=== PATIENT | female | born 1950 | race Caucasian/White ===

== ENCOUNTER → 2016-08-20 | Outpatient (CLI) | payer OTHER ==
--- NOTE | 2016-08-20 10:49 | US ---
Sonography Limited to the Right Upper Quadrant of the Abdomen Clinical History: 66-year-old female with right upper quadrant pain. Technique: A curvilinear 5 MHz transducer was used to sonographically evaluate the right upper quadra nt of the abdomen. Color Doppler was also used. Comparison Study: None. Findings: At the posterior margin of the pancreatic body, there is a 7 x 8 x 9 mm rounded hypoechoic nodule which is not vascular. Consider multiphasic contrast-enhanced MR imaging for additional assess ment. There is some mild underlying pancreatic fatty infiltration. The distal pancreatic tail is part ially obscured by bowel gas. The abdominal aorta is normal in size and tapers normally. The visualize d IVC is normal in caliber. The hepatic vein trifurcation and the main portal vein are patent. There is no ascites, or right pleural effusion. The liver measures 14.8 cm along the right midaxillary line , and is mildly echogenic relative to adjacent right renal cortex. There is no intrahepatic or extrah epatic bile duct dilatation. The common bile duct measures 3.6 mm. The gallbladder is moderately dist ended, with no stones, however, there is an adherent 3.3 mm echogenic nonshadowing polyp. There is no pericholecystic fluid, wall thickening, or sonographic Whalen sign. The gallbladder wall thickness i s 2.0 mm. The right kidney measures 10.8 x 4.6 x 5.2 cm. There is a normal renal cortical thickness o f 1.2 cm. There is no focal renal mass, hydronephrosis, or perinephric fluid. There is conspicuity of the medullary pyramids which may reflect some mild relative increased renal cortical echotexture. Co rrelation with serum creatinine level and GFR is suggested. Impression: 1. There is a 9 mm hypoechoic nodule along the posterior body of the pancreas. Multiphasic contrast-e nhanced MR imaging is recommended for further assessment. 2. There is a benign-appearing 3 mm polyp in the gallbladder. There is no cholelithiasis, cholecystit is, or bile duct dilatation. 3. Low-grade hepatic steatosis. 4. Mild prominence of the right kidney medullary pyramids which made represent a normal variant, alth ough can also be seen in individuals with medical renal disease. Correlation with serum creatinine le taty and GFR is suggested. A Follow-Up Required test result notification was sent via the [employer] service, 5:13:49 PM, 08/20/2016 , [employer] Message ID [id number].
== END ==
LOC: FIMAGING 09:25
PROVIDERS: ATTEND Family Medicine
DX: R93.2 Abnormal findings on diagnostic imaging of liver and biliary tract (principal); R10.11 Right upper quadrant pain

== ENCOUNTER → 2016-08-22 | Outpatient (CLI) | payer OTHER ==
[~2016-08-22] MED LIST: IOPAMIDOL (ISOVUE-300) 50 ML VIAL IV ONE
--- NOTE | 2016-08-22 18:29 | CT ---
CT Abdomen With and Without Contrast Clinical indication: Pancreatic nodule. Comparison: August 20, 2016, ultrasound. TECHNIQUE: 1. 1.5 mm contiguous helical axial scanning through the abdomen without contrast. 2. 1.5 mm contiguous helical axial scanning through the abdomen postcontrast in the arterial phase. 3. 1.5 mm contiguous helical axial scanning through the abdomen in the portal venous phase. Patient received 90 mL of Isovue-300 without complication. Dose reduction technique was performed. FINDINGS: Surgical clip is noted in the right breast. The lung bases are clear. The liver, gallbladde r, spleen, adrenals, and kidneys are grossly unremarkable. In the portal venous phase is a hyperenhan cing nodule that is not visualized on the noncontrast and the arterial phase imaging. It is in the sa me location just above the junction of the splenic and superior mesenteric vein best seen on series 8 , image 68 and measures 8 mm. Nonspecific periportal and periceliac nodes are present. No significant periaortic adenopathy. Modera te degenerative change of the spine is present. There is spondylolysis with grade 2 spondylolisthesis L5-S1. IMPRESSION: Hypervascular 8 mm pancreatic nodule seen in the portal venous phase only. This is slight ly delayed enhancement but most likely diagnosis is neuroendocrine tumor. Endoscopic ultrasound and c orrelation with laboratory values may be helpful. I left a message at Dr. Escalera's office. A Follow-Up Required message has been communicated to BRUCE ESCALERA via the [employer] Result system on 08/22/2016 18:09, Message ID [id number].
== END ==
LOC: FIMAGING 15:54
PROVIDERS: ATTEND Family Medicine
DX: K86.89 Other specified diseases of pancreas (principal)
CPT/HCPCS: 74170; Q9967

== ENCOUNTER → 2016-08-24 | Outpatient (CLI) | payer OTHER ==
--- NOTE | 2016-08-24 17:47 | DX ---
PA and lateral chest. August 24, 2016at 1246. Clinical History: D48.7. History of left breast cancer. Comparison Study: June 16, 2015.. Findings: The lungs are clear. No pleural disease identified. Heart size is normal. Right-sided transvenous pacemaker is unchanged. Surgical clips are identified in the left axilla.. Impression: Stable chest.
== END ==
LOC: FIMAGING 12:27
PROVIDERS: ATTEND Surgery
DX: Z03.89 Encounter for observation for other suspected diseases and conditions ruled out (principal); Z95.0 Presence of cardiac pacemaker
CPT/HCPCS: 86301-90

== ENCOUNTER 2016-09-07 06:53 | Day surgery (SDC) | payer OTHER ==
[2016-09-07] MEDS ORDERED: MIDAZOLAM 2 MG/2 ML VIAL ONE (09:17)
[2016-09-07] MEDS ORDERED: PROPOFOL/EMULSION 500 MG/50 ML BOTTLE IV ONE (09:23)
[2016-09-07] MEDS ORDERED: PROPOFOL 200 MG/20 ML VIAL ONE ×3 (09:48→10:20)
[2016-09-07] MEDS ORDERED: fentaNYL 100 MCG/2 ML INJ ONE (10:00)
[2016-09-07] MEDS ORDERED: ONDANSETRON 4 MG/2 ML VIAL ONE (10:50)
--- NOTE | 2016-09-07 11:45 | GPN ---
[f rep st] PROCEDURE NOTE DATE OF PROCEDURE: 09/07/2016 PROCEDURE: Colonoscopy. INDICATION: The patient is a 66-year-old female who presents for evaluation of diarrhea. CONSENT: Risks, benefits, and alternatives of the procedure were discussed in great detail with the patient. Risk of infection, bleeding, perforation, and sedation were discussed. All questions were answered. Informed consent was obtained. MEDICATIONS: Propofol. Please see Anesthesiology record for details. ESTIMATED BLOOD LOSS: Insignificant. COLONOSCOPIC EVALUATION: A rectal exam was performed and no palpable masses was felt. The scope was introduced into the rectum and advanced to the cecum and the ileocecal valve and the appendiceal orifice was seen. There was some solid stool as well as liquid stool which was seen throughout the colon which was aggressively flushed and suctioned with good views of the mucosa. The cecum was identified by appendiceal orifice and ileocecal valve. Multiple attempts were made to intubate the terminal ileum and only fleeting views were seen. Random biopsies were taken throughout the colon for microscopic colitis. Large and small diverticula were noted in the sigmoid and descending colon. No masses or polyp were seen during this examination. IMPRESSION: 1. Diverticulosis. 2. Biopsies taken to rule out microscopic colitis. RECOMMENDATIONS: 1. Follow up on biopsy results. /[id number]/MODL MTDD
--- NOTE | 2016-09-07 12:01 | GPN ---
[f rep st] PROCEDURE NOTE DATE OF PROCEDURE: 09/07/2016 PROCEDURE: Esophagogastroduodenoscopy with biopsy, endoscopic ultrasound with fine-needle aspiration. INDICATION: The patient is a 66-year-old female who presents for evaluation of RUQ and midepigastric abdominal pain as well as diarrhea. She also had a recent CT scan due to her abdominal pain which showed a 8mm lesion in the pancreatic body. The patient presents for further evaluation and possible tissue acquisition. CONSENT: Risks, benefits, and alternatives of the procedure were discussed in great detail with the patient. Risk of infection, bleeding, perforation, sedation, and pancreatitis were discussed. All questions were answered. Informed consent was obtained. MEDICATIONS: Propofol. Please see Anesthesiologist record for details. ESTIMATED BLOOD LOSS: Insignificant. ESOPHAGOGASTROSCOPY EXAMINATION: The Olympus upper endoscopy was introduced into the mouth and advanced into the esophagus. The proximal, mid, and distal esophagus was normal in appearance. The stomach was entered and closely examined, including retroflexed views of the angularis, cardia, and fundus. A small hiatal hernia was visualized. The mucosa in the antrum and body was erythematous in a patchy distribution. Biopsies were taken. The duodenal bulb and second portion of the duodenum were normal in appearance. Biopsies were taken to rule out celiac sprue due to her symptoms of diarrhea.. ENDOSCOPIC ULTRASOUND EXAMINATION: The Olympus linear echoendoscope was introduced into the mouth and advanced to the second portion of the duodenum. The pancreas was carefully examined from the uncinate process to the tail where the spleen was seen. The pancreatic duct was not dilated. No significantly dilated side branches or cysts or other lesions were noted. In the body of the pancreas, an 8 mm, round, hypoechoic lesion was seen. The margins were slightly indistinct and not well defined. Doppler was used to rule out intervening vessels. Two passes were made with a [employer] 25 gauge lesion. Cytology was present On preliminary report, mainly blood was seen. An additional pass made with a [employer] 22 gauge fine-needle biopsy. A possible core was obtained. The gallbladder was seen. It was normal in appearance. The CBD was not dilated and without stone, stricture or stenosis. No suspicious peripancreatic, perigastric, or periesophageal lymph nodes were appreciated. IMPRESSION: 1. Pancreatic lesion- located in pancreatic body. 8mm. FNA and FNB performed. Neuroendocrine tumor or other? Await results. 2. Gastritis, status post biopsy. 3. Biopsies taken for celiac disease. RECOMMENDATIONS: 1. Follow up on biopsy and FNB results. 2. Follow up with Surgery. /[id number]/MODL EDVIN
== END 2016-09-07 12:10 | disposition home or self-care (01) ==
LOC: FSGY 06:53
PROVIDERS: ATTEND Internal Medicine Gastroenterology
PROC: 0DB68ZX Excision of Stomach, Via Natural or Artificial Opening Endoscopic, Diagnostic (ICD-10-PCS; principal; 2016-09-07 09:00)
PROC: BF47ZZZ Ultrasonography of Pancreas (ICD-10-PCS; principal; 2016-09-07 09:00)
PROC: 0FBG0ZX Excision of Pancreas, Open Approach, Diagnostic (ICD-10-PCS; principal; 2016-09-07 09:00)
PROC: 0DBE8ZX Excision of Large Intestine, Via Natural or Artificial Opening Endoscopic, Diagnostic (ICD-10-PCS; principal; 2016-09-07 09:00)
DX: K86.89 Other specified diseases of pancreas (principal); K57.30 Diverticulosis of large intestine without perforation or abscess without bleeding; Z95.0 Presence of cardiac pacemaker; Z85.3 Personal history of malignant neoplasm of breast
CPT/HCPCS: J2250; J2405; J2704; J3010

== ENCOUNTER → 2016-11-20 | Outpatient (CLI) | payer OTHER ==
[~2016-11-20] MED LIST changes: +IOPAMIDOL (ISOVUE-300) 100 ML BTL IV ONE; -IOPAMIDOL (ISOVUE-300) 50 ML VIAL IV ONE
[2016-11-20 10:36] LABS: CREATININE 0.9 mg/dL (0.6-1.0); GLOMERULAR FILTRATION RATE > 60
== END ==
LOC: FIMAGING 09:41
PROVIDERS: ATTEND Surgery
DX: K86.9 Disease of pancreas, unspecified (principal); K57.90 Diverticulosis of intestine, part unspecified, without perforation or abscess without bleeding; Z95.0 Presence of cardiac pacemaker
CPT/HCPCS: 74170; Q9967

== ENCOUNTER 2016-12-25 07:37 | Emergency (ER) | payer OTHER ==
--- NOTE | 2016-12-25 07:49 | CPEKG ---
Heart Rate: 80 RR Interval: 750 P-R Interval: 184 QRSD Interval: 130 QT Interval: 424 QTC Interval: 490 P [place]: 74 QRS [place]: -43 T Wave [place]: 75 EKG Severity - ABNORMAL ECG - EKG Impression: SINUS RHYTHM EKG Impression: RBBB AND LAFB EKG Impression: PROBABLE LEFT VENTRICULAR HYPERTROPHY EKG Impression: LATERAL INFARCT, OLD Electronically Signed By: Perico Phelps 25-Dec-2016 08:17:23
--- NOTE | 2016-12-25 07:55 | EDPHY ---
H & P Time Seen by Provider: 12/25/16 07:42 HPI/ROS: CHIEF COMPLAINT: Chest discomfort HISTORY OF PRESENT ILLNESS: Patient presents with substernal chest discomfort since 10:30 p.m. last night. She describes it as feeling like she is a tube of toothpaste and she is getting the toothpaste squeezed out her mouth. Patient describes associated shortness of breath. A little bit of a cough since last night but she feels like that is just trying to relieve the pressure in her chest. Not associated with weakness or numbness in extremities nausea. No radiation of symptoms. Currently moderate. She took 2 oral aspirin at home. REVIEW OF SYSTEMS: Eye: no change in vision ENT: no sore throat Cardiac: HPI, a little bit dizzy Pulmonary: HPI Abdomen: no vomiting, diarrhea, abdominal pain Musculoskeletal: no back pain Skin: no rash Neuro: no headache Constitutional: no fever : no urinary symptoms A comprehensive 10 point review of systems is otherwise negative aside from elements mentioned in the history of present illness. PAST MEDICAL HISTORY: Includes breast cancer, multiple abdominal surgeries when she was younger. Dual-chamber pacemaker. Social history: Negative for tobacco smoking General Appearance: Alert and conversant, cooperative. Eyes: No scleral icterus. ENT, Mouth: Normal mucous membranes. Respiratory: Normal respiratory effort, breath sounds equal, lungs are clear to auscultation. Cardiovascular: Regular rate and rhythm. Gastrointestinal: Abdomen is soft and non tender. Neurological: Alert and oriented x3. Normally conversant. Face symmetric, normal movement and sensation in all extremities. Skin: Warm and dry, no rashes. Musculoskeletal: No peripheral edema and no joint swelling. No calf tenderness Psychiatric: Not agitated. Emergency Department course/MDM: Patient took 2 oral aspirin at home. Plan for EKG, chest x-ray, troponin and D- dimer. 910: Results discussed, CT angiography discussed and consented. Plan to contact [facility] for possible stress testing urgently. Discussed with Arti from Cardiology, negative nuclear stress test in 2014, admit to [facility] for 2nd troponin and Lexiscan testing. 1040: Plan for discharge if negative Lexiscan. 1235: Nuclear stress negative for ischemia or infarct per Finer. Smoking Status: Never smoked Constitutional: Initial Vital Signs Temperature (C) 36.8 C 12/25/16 07:39 Heart Rate 88 12/25/16 07:39 Respiratory Rate 16 12/25/16 07:39 Blood Pressure 116/90 H 12/25/16 07:39 O2 Sat (%) 97 12/25/16 07:39 O2 Delivery Mode Nasal Cannula O2 (L/minute) 2 Allergies/Adverse Reactions: narcotics Allergy (Uncoded 12/25/16 07:38) Other-Enter Comments Home Medications: Medication Instructions Recorded Aspirin 325 mg (*) 12/25/16 Medical Decision Making - Diagnostics EKG Interpretation: 12-lead EKG interpreted by me; official reading is in trace master. My interpretation is sinus rhythm rate 80 with right bundle branch block and left anterior fascicular block Imaging Results: Imaging Impressions Chest X-Ray 12/25/16 07:53 Impression: No active cardiopulmonary disease seen. Chest/Thorax CTA 12/25/16 09:23 Impression: 1. No definite pulmonary thromboemboli. 2. Small pericardial effusion. 3. No aortic aneurysm or dissection. 4. No pneumonia, pleural effusion, or pneumothorax. Findings and recommendations discussed with Emergency Department physician, Perico Phelps at 1024 hours on December 25, 2016. Final report concurs with initial preliminary interpretation. A test result has been communicated to a licensed care provider and documented in the [employer] Result system on 12/25/2016 10:26, Message ID [id number]. Myocardial Perfusion Scan Nuc Med 12/25/16 10:00 Impression: 1. Normal left ventricular ejection fraction of 79%. 2. No focal wall motion abnormalities. 3. No definite ischemia or infarct. Neg CT for PE or dissection, pericardial effusion, Isuani 1024. Differential Diagnosis: Differential diagnosis considered for chest pain including but not limited to myocardial ischemia, aortic dissection, pericarditis, pulmonary embolus, chest wall pain, pleural inflammation and pulmonary infectious causes. Consult/Admit Bed Type: [facility] at 926 - Data Points Laboratory Results: Laboratory Results 12/25/16 07:55 12/25/16 07:55 12/25/16 12/25/16 12/25/16 07:55 07:55 07:55 WBC 6.31 10^3/uL 10^3/uL (3.80-9.50) RBC 4.48 10^6/uL 10^6/uL (4.18-5.33) Hgb 14.1 g/dL g/dL (12.6-16.3) Hct 40.9 % % (38.0-47.0) MCV 91.3 fL fL (81.5-99.8) MCH 31.5 pg pg (27.9-34.1) MCHC 34.5 g/dL g/dL (32.4-36.7) RDW 13.7 % % (11.5-15.2) Plt Count 211 10^3/uL 10^3/uL (150-400) MPV 9.4 fL fL (8.7-11.7) Neut % (Auto) 66.3 % % (39.3-74.2) Lymph % (Auto) 20.3 % % (15.0-45.0) Benzie % (Auto) 10.3 % % (4.5-13.0) Eos % (Auto) 2.5 % % (0.6-7.6) Baso % (Auto) 0.3 % % (0.3-1.7) Nucleat RBC Rel Count 0.0 % % (0.0-0.2) Absolute Neuts (auto) 4.18 10^3/uL 10^3/uL (1.70-6.50) Absolute Lymphs (auto) 1.28 10^3/uL 10^3/uL (1.00-3.00) Absolute Monos (auto) 0.65 10^3/uL 10^3/uL (0.30-0.80) Absolute Eos (auto) 0.16 10^3/uL 10^3/uL (0.03-0.40) Absolute Basos (auto) 0.02 10^3/uL 10^3/uL (0.02-0.10) Absolute Nucleated RBC 0.00 10^3/uL 10^3/uL (0-0.01) Immature Gran % 0.3 % % (0.0-1.1) Immature Gran # 0.02 10^3/uL 10^3/uL (0.00-0.10) D-Dimer 0.61 ug/mLFEU H ug/mLFEU (0.00-0.50) Sodium 141 mEq/L mEq/L (134-144) Potassium 4.0 mEq/L mEq/L (3.5-5.2) Chloride 106 mEq/L mEq/L (97-110) Carbon Dioxide 24 mEq/l mEq/l (22-31) Anion Gap 11 mEq/L mEq/L (8-16) BUN 21 mg/dL mg/dL (7-23) Creatinine 0.7 mg/dL mg/dL (0.6-1.0) Estimated GFR > 60 Glucose 95 mg/dL mg/dL (70-100) Calcium 9.9 mg/dL mg/dL (8.5-10.4) Troponin I < 0.012 ng/mL ng/mL (0-0.034) Departure - Departure Disposition: Home, Routine, Self-Care Clinical Impression: Chest pain Condition: Good Instructions: Chest Pain (ED) Referrals: Marcia Escalera [Primary Care Provider] - As per Instructions
[2016-12-25 08:12] LABS: % IMMATURE GRANULYOCYTES 0.3 % (0.0-1.1); ABSOLUTE IMMATURE GRANULOCYTES 0.02 10^3/uL (0.00-0.10); ADD DIFF? NO; ADD MORPH? NO; ADD SCAN? NO; ATYPICAL LYMPHOCYTE FLAG 0 (0-99); FRAGMENT RBC FLAG 0 (0-99); HEMATOCRIT 40.9 % (38.0-47.0); HEMOGLOBIN 14.1 g/dL (12.6-16.3); LEFT SHIFT FLG 0 (0-99); LIPEMIA HEMOLYSIS FLAG 90 (0-99); MEAN CELL HEMOGLOBIN 31.5 pg (27.9-34.1); MEAN CELL HEMOGLOBIN CONCENTR. 34.5 g/dL (32.4-36.7); MEAN CELL VOLUME 91.3 fL (81.5-99.8); MEAN PLATELET VOLUME 9.4 fL (8.7-11.7); PLATELET CLUMPS FLAG 0 (0-99); PLATELET COUNT 211 10^3/uL (150-400); RED BLOOD CELL COUNT 4.48 10^6/uL (4.18-5.33); RED CELL DISTRIBUTION WIDTH 13.7 % (11.5-15.2)
[2016-12-25 08:19] LABS: ANION GAP 11 mEq/L (8-16); CALCIUM 9.9 mg/dL (8.5-10.4); CARBON DIOXIDE 24 mEq/l (22-31); CHLORIDE 106 mEq/L (97-110); CREATININE 0.7 mg/dL (0.6-1.0); GLOMERULAR FILTRATION RATE > 60; GLUCOSE 95 mg/dL (70-100); SODIUM 141 mEq/L (134-144)
[2016-12-25 08:31] LABS: TROPONIN I < 0.012 ng/mL (0-0.034)
[2016-12-25] MEDS ORDERED: IOPAMIDOL (ISOVUE 370) 100 ML BTL IV ONE (09:26)
[2016-12-25] MEDS ORDERED: REGADENOSON 0.4 MG/5 ML SYR IVP ONE (10:32)
--- NOTE | 2016-12-25 11:47 | PDCONSULT ---
[facility] [employer] Note: Lexiscan stress test for Chest Pain evaluation After informed consent was obtained, pt was established to ECG, blood pressure, HR and oximetry monitoring. STRESS EKG AND HEMODYNAMIC DATA Resting heart rate: 69 BPM. Resting ECG: SR with diffuse ST-T wave abnormality Resting blood pressure: 136/74 mmHg. O2 saturation at rest: 96 Peak heart rate: 69 BPM. Peak blood pressure: 140/80 mmHg. Arrhythmias: None Symptoms: The patient experienced no typical symptoms of angina during stress or recovery. . Stress/Infusion ECG: No change in rhythm with no significant ST/T wave changes. Stress/infusion O2 saturation: 95% Uneventful Lexiscan infusion with typical side effects to Lexiscan. Await nuclear images.
[2016-12-25 12:43] VITALS: PULSE 79
[2016-12-25 12:45] VITALS: BP 122/82; RESP 16; TEMP 98.6; O2SAT 93
== END 2016-12-25 12:45 | disposition home or self-care (01) ==
DX: R07.2 Precordial pain (principal); Z79.82 Long term (current) use of aspirin; Z85.3 Personal history of malignant neoplasm of breast; Z95.0 Presence of cardiac pacemaker
CPT/HCPCS: 71020; 71275; 78452; 93005; 93017; 99285; A9500; J2785; Q9967

== ENCOUNTER → 2017-01-14 | Outpatient (CLI) | payer OTHER | LOC: BHFA 11:30 | PROVIDERS: ATTEND Internal Medicine Cardiovascular Disease | DX: I31.3 Pericardial effusion (noninflammatory) (principal) ==

== ENCOUNTER → 2017-03-06 | Outpatient (CLI) | payer OTHER ==
[~2017-03-06] MED LIST changes: -IOPAMIDOL (ISOVUE-300) 100 ML BTL IV ONE; +IOPAMIDOL (ISOVUE-300) 100 ML BTL ONE
== END ==
LOC: FIMAGING 07:42
PROVIDERS: ATTEND Surgery
DX: K86.9 Disease of pancreas, unspecified (principal); K57.31 Diverticulosis of large intestine without perforation or abscess with bleeding; M43.16 Spondylolisthesis, lumbar region; Z90.711 Acquired absence of uterus with remaining cervical stump
CPT/HCPCS: 74177; Q9967

== ENCOUNTER → 2017-08-16 | Outpatient (CLI) | payer OTHER | LOC: FIMAGING 09:27 | PROVIDERS: ATTEND Surgery | DX: K86.9 Disease of pancreas, unspecified (principal); K82.4 Cholesterolosis of gallbladder; R05 Cough ==

== ENCOUNTER → 2018-12-08 | Outpatient (CLI) | payer OTHER | LOC: FIMAGING 06:57 | PROVIDERS: ATTEND Surgery | DX: D37.8 Neoplasm of uncertain behavior of other specified digestive organs (principal) ==